=== PATIENT | female | born 1995 ===

== ENCOUNTER 2017-02-25 01:20 | Observation (INO) | payer OTHER ==
[2017-02-25 01:48] VITALS: RESP 16
--- NOTE | 2017-02-25 01:51 | ED PDOC ---
Arrival/HPI <Bry Rnig - Last Filed: 02/25/17 04:07> - History of Present Illness Time/Duration: > month Symptom Onset: Gradual Symptom Course: Worsening Activities at Onset: Other <Heather Silverio - Last Filed: 02/25/17 04:19> - General Time Seen by Provider: 02/25/17 01:23 - History of Present Illness Narrative History of Present Illness (Text): 02/25/17 01:44 21 year old female with no significant past medical history presents for suprapubic abd pain that has been ongoing for 2 months recently worsening. patient states that she had copper IUD device placed 5 years ago in [place]. Patient thinks the pain is due to the IUD device. Denies having any F/C, N/V/D/ C, vaginal discharge and vaginal bleeding. Patient does c/o dysparaunia and occasional dysuria. Patient had 1 in the past which was likely ectopic. required D&C at 3 months. Patient is currently sexually active, denies having any hx of STDs. LMP 8/02/25/17 02:22 (Heather Silverio) Past Medical History - Provider Review Nursing Documentation Reviewed: Yes - Travel History Have you recently traveled outside [place] w/in the past 3 mons?: No - Infectious Disease Hx of Infectious Diseases: None - Reproductive Menopause: No - Psychiatric Hx Substance Use: No <Heather Silverio - Last Filed: 02/25/17 04:19> Family/Social History - Physician Review Nursing Documentation Reviewed: Yes Family/Social History: Unknown Family HX Smoking Status: Never Smoked Hx Alcohol Use: Yes Frequency of alcohol use: Socially Hx Substance Use: No <Heather Silverio - Last Filed: 02/25/17 04:19> Allergies/Home Meds <Bry Ring - Last Filed: 02/25/17 04:07> <Heather Silverio - Last Filed: 02/25/17 04:19> Allergies/Adverse Reactions: Allergies No Known Allergies Allergy (Verified 02/25/17 02:07) Home Medications: Home Meds Medication Instructions Recorded Confirmed No Known Home Med 02/25/17 02/25/17 Review of Systems - Review of Systems Constitutional: Normal. absent: Fatigue, Fevers Eyes: Normal. absent: Vision Changes, Photophobia ENT: Normal. absent: Sore Throat, Rhinorrhea, Sinus Congestion Respiratory: Normal. absent: SOB, Cough, Sputum, Wheezing Cardiovascular: Normal. absent: Chest Pain, Palpitations, Edema, Calf Pain Gastrointestinal: Abdominal Pain. absent: Constipation, Diarrhea, Nausea, Vomiting Genitourinary Female: Dysuria, Other (dysparaunia ). absent: Frequency, Hematuria, Vaginal Bleeding, Vaginal Discharge Musculoskeletal: Normal. absent: Arthralgias, Back Pain, Neck Pain Skin: Normal. absent: Rash, Pruritis, Skin Lesions, Laceration Neurological: Normal. absent: Headache, Dizziness Endocrine: Normal. absent: Diaphoresis, Polyuria Hemo/Lymphatic: Normal. absent: Adenopathy, Easy Bleeding <Heather Silverio - Last Filed: 02/25/17 04:19> Physical Exam Temperature: Afebrile Blood Pressure: Normal Pulse: Regular Respiratory Rate: Normal Appearance: Positive for: Well-Appearing, Non-Toxic, Comfortable Pain Distress: Mild Mental Status: Positive for: Alert and Oriented X 3 - Systems Exam Head: Present: Atraumatic, Normocephalic Extroacular Muscles: Present: EOMI Mouth: Present: Moist Mucous Membranes Respiratory/Chest: Present: Clear to Auscultation, Good Air Exchange. No: Respiratory Distress, Accessory Muscle Use, Wheezes, Rales, Rhonchi Cardiovascular: Present: Regular Rate and Rhythm, Normal S1, S2. No: Murmurs Abdomen: Present: Tenderness (suprapubic ), Normal Bowel Sounds. No: Distention , Peritoneal Signs, Rebound, Guarding Genitourinary/Pelvic Exam: Present: Normal External Genitalia, Vaginal Discharge , Cervical Motion Tendernes. No: Vaginal Bleeding, Vaginal Lesions, Odor Lower Extremity: Present: Normal Inspection, NORMAL PULSES. No: Edema, CALF TENDERNESS Neurological: Present: GCS=15 Skin: Present: Warm, Dry, Normal Color. No: Rashes Psychiatric: Present: Alert, Oriented x 3, Normal Insight, Normal Concentration <Heather Silverio - Last Filed: 02/25/17 04:19> Vital Signs Temp Pulse Resp BP Pulse Ox 02/25/17 01:20 98.1 F 82 16 110/54 L 100 Medical Decision Making <Bry Ring - Last Filed: 02/25/17 04:07> <Heather Silverio - Last Filed: 02/25/17 04:19> ED Course and Treatment: Impression: Pt seen and evaluated with chief medical director. Pt, with no significant past medial history, presented for suprapubic pain for 2 months. Also complaining of dyspareunia and occasional dysuria. Aware and agree with HPI, clinical findings , plan, and management. Plan: -- Reassess and disposition 02/25/17 03:[address] Larkin, who is aware and agrees with plan. Accepts pt in to hospitalist service. Pt will go to [facility] observation for PID and retained IUD. vice president & general manager [employer] [place] notified. (Bry Ring) 02/25/17 01:52 21 y/o F presents for suprapubic abd pain ongoing for about 2 months recently worsening. 02/25/17 02:15 Dr. Lockwood, the OBGYN international organizer was called. Recommended that since patient has symptoms of PID, it is necessary to pull IUD out and treat outpatient for PID. 02/25/17 02:23 02/25/17 02:24 will check CBC, CMP, UA, urine culture and urine HCG 02/25/17 02:36 Repeat pelvic exam done. Unable to pull out IUD because unable to visualize the string for the device. 02/25/17 03:55 Dr. Ring spoke with Dr. Larkin who accepts pt under hospitalists service for observation. Will start pt on cefoxitin and doxycycline. Resident notified (Heather Silverio) - Lab Interpretations Lab Results: 02/25/17 02:55 02/25/17 02:55 Lab Results 02/25/17 02:55: Sodium 138, Potassium 3.7, Chloride 101, Carbon Dioxide 26, Anion Gap 15, BUN 12, Creatinine 0.5, Est GFR ( Amer) > 60, Est GFR (Non- Af Amer) > 60, Random Glucose 101, Calcium 9.0, Total Bilirubin 0.2, AST 21, ALT 23, Alkaline Phosphatase 52, Total Protein 7.4, Albumin 4.2, Globulin 3.2, Albumin/Globulin Ratio 1.3 02/25/17 02:55: WBC 7.5, RBC 3.96, Hgb 11.6 L, Hct 34.7 L, MCV 87.6, MCH 29.3, MCHC 33.4, RDW 13.5, Plt Count 253, MPV 9.5 02/25/17 02:55: Urine Color Yellow, Urine Appearance Clear, Urine pH 5.5, Ur Specific [place] 1.010, Urine Protein Negative, Urine Glucose (UA) Negative, Urine Ketones Negative, Urine Blood Trace-lysed H, Urine Nitrate Negative, Urine Bilirubin Negative, Urine Urobilinogen 0.2, Ur Leukocyte Esterase Small H , Urine RBC 0 - 2, Urine WBC 0 - 2, Ur Epithelial Cells 1 - 3, Urine HCG, Qual Negative - Medication Orders Current Medication Orders: Cefoxitin Sodium 2 gm/ Sodium (Chloride) 100 mls @ 100 mls/hr IV ONCE ONE PRN Reason: Protocol Stop: 02/25/17 04:50 Doxycycline Hyclate 100 mg/ (Sodium Chloride) 100 mls @ 100 mls/hr IVPB Q12 [facility] PRN Reason: Protocol Discontinued Medications Acetaminophen (Tylenol 325mg Tab) 650 mg PO STAT STA Stop: 02/25/17 02:41 Last Admin: 02/25/17 03:02 Dose: 650 mg Azithromycin (Zithromax 500mg In Ns) 500 mg in 250 mls @ 167 mls/hr IVPB STAT STA PRN Reason: Protocol Stop: 02/25/17 04:07 Last Admin: 02/25/17 03:02 Dose: 167 mls/hr - PA / SENSOR SPECIALIST / Resident Statement BARBARA has reviewed & agrees with the documentation as recorded. BARBARA has examined the patient and agrees with the treatment plan. <Bry Ring - Last Filed: 02/25/17 04:07> Disposition/Present on Arrival <Bry Ring - Last Filed: 02/25/17 04:07> - Present on Arrival Any Indicators Present on Arrival: No History of DVT/PE: No History of Uncontrolled Diabetes: No Urinary Catheter: No History of Decub. Ulcer: No History Surgical Site Infection Following: None - Disposition Have Diagnosis and Disposition been Completed?: Yes Disposition Time: 04:04 Patient Plan: Observation <Heather Silverio - Last Filed: 02/25/17 04:19> - Disposition Diagnosis: PID (acute pelvic inflammatory disease), IUD threads lost Disposition: HOSPITALIZED Patient Problems: Current Active Problems Problem Status Onset IUD threads lost Acute PID (acute pelvic inflammatory disease) Acute Condition: STABLE
[2017-02-25] MEDS ORDERED: cefTRIAXone (Rocephin) 1 gm Inj IM STA (02:22)
[2017-02-25] MEDS ORDERED: Azithromycin 500MG/NS 250ml 500 MG/250 ML BAG IVPB STA (02:38)
[2017-02-25 03:12] LABS: HEMOGLOBIN 11.6 g/dL (12.0-16.0); MEAN CELL VOLUME 87.6 fl (80.0-105.0); MEAN CORPUSCULAR HEMOGLOBIN 29.3 pg (25.0-35.0); MEAN CORPUSCULAR HGB CONC 33.4 g/dl (31.0-37.0); MEAN PLATELET VOLUME 9.5 fl (7.0-11.0); PH,URINE 5.5 (4.7-8.0); RBC 3.96 10^6/uL (3.5-6.1); RED CELL DISTRIBUTION WIDTH 13.5 % (11.5-14.5); URINE BILIRUBIN NEGATIVE (NEGATIVE); URINE BLOOD TRACE-LYSED (NEGATIVE); URINE GLUCOSE (UA) NEGATIVE (NEGATIVE); URINE LEUKOCYTE ESTERASE SMALL Leu/uL (NEGATIVE); URINE NITRATE NEGATIVE (NEGATIVE); URINE PROTEIN NEGATIVE mg/dL (<30 mg/dL); URINE UROBILINOGEN 0.2 E.U./dL (<1 E.U./dL); WHITE BLOOD COUNT 7.5 10^3/ul (4.5-11.0)
[2017-02-25 03:18] LABS: ALB/GLOB RATIO 1.3 (1.1-1.8); ALBUMIN 4.2 g/dL (3.0-4.8); ALT/SGPT 23 U/L (7-56); AST/SGOT 21 U/L (15-39); BLOOD UREA NITROGEN 12 mg/dL (7-21); GFR AFRICAN-AMERICAN > 60; GFR NON-AFRICAN AMERICAN > 60
[2017-02-25 03:32] LABS: HCG,QUALITATIVE URINE NEGATIVE (NEGATIVE); URINE APPEARANCE CLEAR (CLEAR); URINE COLOR YELLOW (YELLOW)
[2017-02-25 03:35] LABS: URINE RBC 0 - 2 /hpf (0-2); URINE WBC 0 - 2 /hpf (0-6)
[2017-02-25] MEDS ORDERED: cefOXitin 2 GM in Sodium Chloride 0.9% 100 ML IV ONE (03:51)
[2017-02-25 05:32] VITALS: O2SAT 99
--- NOTE | 2017-02-25 05:43 | CP.PCM.HP ---
Addendum entered and electronically signed by Rolanda Barrientos DO 02/25/17 12:57: Plan f/u ELECTRO MECHANICAL SOLAR TECHNICIAN Recommendations: Per Dr. Gerardo, patient can be discharged on Doxycycline 100 mg POBID x 14 days. Patient encouraged to follow up for further evaluation and other control options per Dr. Gerardo (SWITCH TECHNICIAN) Original Note: History of Present Illness - History of Present Illness History of Present Illness: 21 year old female with a past medical history of PID, epistaxis, seasonal allergies who complains of 2 months of worsening lower abdominal pain and dyspareunia. She states that she has also developed pain with intercourse, post- intercourse, and with deep penetration. She denies having any assciated nausea, fever, diarrhea, or localiztion of the abdominal pain. She also mentions pain during and after her periods, which are at regular 28 day intervals, heavy- requiring her to change her tampon 5-6 times daily. Due to the increasing severity of pain, and it not responding to the usual 800 mg of Motrin she takes , along with her concern about migration of her IUD, she came to the ED. She denies having any history of STI, any change in partners in the last 3 months, or dysuria currently. PMH: Seasonal allergies, recurrent epistaxis, lumbago OBGYN: Patient had 1 miscarriage in the 3rd month requiring Dilation and Curretage and subsequent Copper IUD placement. Social History: Works at a [email or web address] Snacks, drinks and smokes socially, denies illicit drug use, lives with mother and sister Medications: Zyrtec and Motrin 800 mg for pain Allergies: NKDA. Present on Admission - Present on Admission Any Indicators Present on Admission: No Review of Systems - Constitutional Constitutional: As Per HPI - EENT Eyes: As Per HPI Ears: As Per HPI Nose/Mouth/Throat: Epistaxis - Cardiovascular Cardiovascular: absent: Chest Pain, Chest Pain at Rest, Dyspnea - Respiratory Respiratory: absent: Cough, Hemoptysis, Dyspnea on Exertion - Gastrointestinal Gastrointestinal: Abdominal Pain. absent: Dyspepsia, Loose Stools, Vomiting - Genitourinary Genitourinary: Urinary Hesitance. absent: Flank Pain, Nocturia, Urinary Incontinence - Reproductive: Female Reproductive:Female: Heavy Menses - Musculoskeletal Musculoskeletal: As Per HPI - Integumentary Integumentary: As Per HPI - Neurological Neurological: Dizziness. absent: Abnormal Gait, Headaches, Loss of Vision - Hematologic/Lymphatic Hematologic: As Per HPI Past Patient History - Infectious Disease Hx of Infectious Diseases: None - Past Social History Smoking Status: Never Smoked - PSYCHIATRIC Hx Substance Use: No Meds Allergies/Adverse Reactions: Allergies Allergy/AdvReac Type Severity Reaction Status Date / Time No Known Allergies Allergy Verified 02/25/17 02:07 Physical Exam - Constitutional Appears: No Acute Distress - Head Exam Head Exam: ATRAUMATIC, NORMOCEPHALIC - Eye Exam Eye Exam: EOMI, Normal appearance, PERRL - ENT Exam ENT Exam: Mucous Membranes Moist, Normal Oropharynx - Neck Exam Neck exam: Positive for: Normal Inspection. Negative for: Tenderness - Respiratory Exam Respiratory Exam: Clear to Auscultation Bilateral, NORMAL BREATHING PATTERN. absent: Wheezes - Cardiovascular Exam Cardiovascular Exam: RRR, +S1, +S2 - GI/Abdominal Exam GI & Abdominal Exam: Normal Bowel Sounds. absent: Rebound Additional comments: tenderness to palpation in the lower quadrants and pelvic region. - Rectal Exam Rectal Exam: Deferred - Exam Bimanual exam: Cervical Motion Tendernes (per ED resident) - Extremities Exam Extremities exam: Positive for: normal capillary refill, normal inspection, pedal pulses present - Back Exam Back exam: NORMAL INSPECTION. absent: CVA tenderness (L), CVA tenderness (R) - Neurological Exam Neurological exam: Alert, CN II-XII Intact, Oriented x3 - Psychiatric Exam Psychiatric exam: Normal Affect, Normal Mood - Skin Skin Exam: Dry, Intact, Normal Color, Warm Results - Vital Signs Recent Vital Signs: Last Vital Signs Temp 98.1 F 02/25/17 01:20 Pulse 80 02/25/17 03:20 Resp 16 02/25/17 03:20 BP 112/57 L 02/25/17 03:20 Pulse Ox 99 02/25/17 03:20 - Labs Result Diagrams: 02/25/17 02:55 02/25/17 02:55 Assessment & Plan - Assessment and Plan (Free Text) Assessment: 21 yo female with PID who presents with 2 months of lower abdominal pain. In the ED pelvic exam was performed which revealed extreme cervical motion tenderness and failure to retrive the IUD. Given the patient would be a poor candidate for follow-up, she was admitted to the hospital for IV antibiotics and removal of the IUD. Plan: 1) PID with IUD with increasingly worse abdominal pain, cervical motion tenderness, with poor follow up potential Doxycycline and Cefoxitin OBGYN consult for IUD removal F/U with CBC to ensure no systemic infection Tylenol PRN for pain Zofran prn for nausea 2) Anemia most likely secondary to heavy menses - Date & Time Date: 02/25/17 Time: 05:25
[2017-02-25] MEDS ORDERED: Sodium Chloride 0.9% 1,000 ML IV SCH (09:30)
[2017-02-25] MEDS ORDERED: Morphine 2 mg/ml ISec IVP PRN (09:54)
--- NOTE | 2017-02-25 10:14 | CT ---
PROCEDURE: CT Abdomen and Pelvis without intravenous contrast HISTORY: abdominal pain COMPARISON: None. TECHNIQUE: Without contrast. Contrast Dose: Radiation dose: Total exam DLP = 401 mGy-cm. This CT exam was performed using one or more of the following dose reduction techniques: Automated exposure control, adjustment of the mA and/or kV according to patient size, and/or use of iterative reconstruction technique. FINDINGS: LOWER THORAX: Unremarkable. LIVER: Unremarkable. No gross lesion or ductal dilatation. GALLBLADDER AND BILE DUCTS: Unremarkable. PANCREAS: Unremarkable. No gross lesion or ductal dilatation. SPLEEN: Unremarkable. ADRENALS: Unremarkable. No mass. KIDNEYS AND URETERS: Unremarkable. No hydronephrosis. No solid mass. VASCULATURE: Unremarkable. No aortic aneurysm. BOWEL: Unremarkable. No obstruction. No gross mural thickening. APPENDIX: Unremarkable. Normal appendix. PERITONEUM: There is a small amount of fluid in the cul-de-sac LYMPH NODES: Unremarkable. No enlarged lymph nodes. BLADDER: Unremarkable. REPRODUCTIVE: An IUD is seen within the endometrial canal. BONES: No acute fracture. OTHER FINDINGS: None. IMPRESSION: No acute findings
[2017-02-25] MEDS ORDERED: cefOXitin 2 GM in Sodium Chloride 0.9% 100 ML IV SCH (10:30)
--- NOTE | 2017-02-25 12:47 | CP.PCM.CON ---
History of Present Illness - History of Present Illness History of Present Illness: Patient is a 21 nullparous female presents with lower abdominal pain, admitted for PID management. Patient is afebrile, reports that the lower abdominal pain has improved with tylenol, no N/V, no vaginal bleeding, no CP, no SOB. Discussed with admitting doctor recommendation would be to remove IUD if PID is diagnosis. ER PA was unable to remove IUD. Past Patient History - Infectious Disease Hx of Infectious Diseases: None - Past Social History Smoking Status: Never Smoked - CARDIAC Hx Cardiac Disorders: No - PULMONARY Hx Respiratory Disorders: No - NEUROLOGICAL Hx Neurological Disorder: No Hx Dizziness: Yes (occassional) - HEENT Hx HEENT Problems: No - RENAL Hx Chronic Kidney Disease: No - ENDOCRINE/METABOLIC Hx Endocrine Disorders: No - HEMATOLOGICAL/ONCOLOGICAL Hx Blood Disorders: No - INTEGUMENTARY Hx Dermatological Problems: No - MUSCULOSKELETAL/RHEUMATOLOGICAL Hx Musculoskeletal Disorders: No Hx Back Pain: Yes Hx Falls: No - GASTROINTESTINAL Hx Gastrointestinal Disorders: No - GENITOURINARY/GYNECOLOGICAL Hx Genitourinary Disorders: No - PSYCHIATRIC Hx Substance Use: No - SURGICAL HISTORY Other/Comment: has had D&C done Meds Allergies/Adverse Reactions: Allergies Allergy/AdvReac Type Severity Reaction Status Date / Time No Known Allergies Allergy Verified 02/25/17 02:07 - Medications Medications: Current Medications Acetaminophen (Tylenol 325mg Tab) 650 mg PO Q6H PRN PRN Reason: Pain, moderate (4-7) Famotidine (Pepcid) 20 mg IVP DAILY [facility] Last Admin: 02/25/17 10:35 Dose: 20 mg Doxycycline Hyclate 100 mg/ (Sodium Chloride) 100 mls @ 100 mls/hr IVPB Q12 [facility] PRN Reason: Protocol Last Admin: 02/25/17 10:53 Dose: 100 mls/hr Sodium Chloride (Sodium Chloride 0.9%) 1,000 mls @ 100 mls/hr IV .Q10H [facility] Last Admin: 02/25/17 10:35 Dose: 100 mls/hr Ceftriaxone Sodium (Rocephin 1 Gram Ivpb) 1 gm in 100 mls @ 100 mls/hr IVPB DAILY [facility] PRN Reason: Protocol Metronidazole (Flagyl) 500 mg in 100 mls @ 100 mls/hr IVPB Q8 [facility] PRN Reason: Protocol Morphine Sulfate (Morphine) 1 mg IVP Q4H PRN PRN Reason: Pain, moderate (4-7) Ondansetron HCl (Zofran Odt) 4 mg PO Q6H PRN PRN Reason: Nausea/Vomiting Ondansetron HCl (Zofran Inj) 4 mg IVP Q4H PRN PRN Reason: Nausea/Vomiting Physical Exam - Constitutional Appears: Well, Non-toxic - Eye Exam Eye Exam: Normal appearance - Respiratory Exam Respiratory Exam: Clear to Auscultation Bilateral, NORMAL BREATHING PATTERN - Cardiovascular Exam Cardiovascular Exam: REGULAR RHYTHM, +S1, +S2 - GI/Abdominal Exam GI & Abdominal Exam: Normal Bowel Sounds, Soft Additional comments: no gaurding, no rebound - Exam Speculum exam: NORMAL SPECULUM EXAM Additional comments: Speculum inserted, no masses, no abnormal discharge, +strings noted at os, ring forcep used to remove IUD in entirety. IUD shown to patient - Extremities Exam Extremities exam: Positive for: normal inspection Results - Vital Signs Recent Vital Signs: Last Vital Signs Temp 98.2 F 02/25/17 07:30 Pulse 64 02/25/17 07:30 Resp 16 02/25/17 07:30 BP 104/55 L 02/25/17 07:30 Pulse Ox 99 02/25/17 07:30 - Labs Result Diagrams: 02/25/17 02:55 02/25/17 02:55 Assessment & Plan - Assessment and Plan (Free Text) Plan: A/P 21 yo admitted for PID management 1. Patient evaluated and examined. Speculum inserted, no masses/no abnormal discharge. Strings noted at os, ring forcep used to remove IUD in entirety. CT scan shows no masses, no other findings. WBC = 7 and patient continues to be afebrile. Patient reports that abdominal pain is improved since last night. Asymptomatic on exam 2. Patient can be discharged home on outpatient therapy with Doxycycline 100mg PO BID x 14 days. 3. Patient encouraged to follow up in the clinic for further evaluation and other control options 4. Consult appreciated - Date & Time Date: 02/25/17 Time: 12:46
[2017-02-25] MEDS ORDERED: metroNIDAZOLE IV 500 mg/100 ml 500 MG/100 ML BAG IVPB SCH (14:00)
--- NOTE | 2017-02-25 14:00 | CP.PCM.DIS ---
<Eng,Rolanda - Last Filed: 02/25/17 14:14> Provider - Provider Date of Admission: 02/25/17 03:59 Attending physician: Chucky Perkins MD Consults: Dr. Gerardo - TAMI White - ID Time Spent in preparation of Discharge (in minutes): 20 Hospital Course - Lab Results Lab Results: Most Recent Lab Values WBC 7.5 10^3/ul (4.5-11.0) 02/25/17 02:55 RBC 3.96 10^6/uL (3.5-6.1) 02/25/17 02:55 Hgb 11.6 g/dL (12.0-16.0) L 02/25/17 02:55 Hct 34.7 % (36.0-48.0) L 02/25/17 02:55 MCV 87.6 fl (80.0-105.0) 02/25/17 02:55 MCH 29.3 pg (25.0-35.0) 02/25/17 02:55 MCHC 33.4 g/dl (31.0-37.0) 02/25/17 02:55 RDW 13.5 % (11.5-14.5) 02/25/17 02:55 Plt Count 253 10^3/uL (120.0-450.0) 02/25/17 02:55 MPV 9.5 fl (7.0-11.0) 02/25/17 02:55 ESR 9 mm/hr (0.0-20.0) 02/25/17 03:00 Sodium 138 mmol/L (132-148) 02/25/17 02:55 Potassium 3.7 mmol/L (3.6-5.0) 02/25/17 02:55 Chloride 101 mmol/L (95-110) 02/25/17 02:55 Carbon Dioxide 26 mmol/L (21-33) 02/25/17 02:55 Anion Gap 15 (10-20) 02/25/17 02:55 BUN 12 mg/dL (7-21) 02/25/17 02:55 Creatinine 0.5 mg/dL (0.5-1.4) 02/25/17 02:55 Est GFR ( Amer) > 60 02/25/17 02:55 Est GFR (Non-Af Amer) > 60 02/25/17 02:55 Random Glucose 101 mg/dL (70-110) 02/25/17 02:55 Calcium 9.0 mg/dL (8.4-10.5) 02/25/17 02:55 Total Bilirubin 0.2 mg/dL (0.2-1.3) 02/25/17 02:55 AST 21 U/L (15-39) 02/25/17 02:55 ALT 23 U/L (7-56) 02/25/17 02:55 Alkaline Phosphatase 52 U/L (38-133) 02/25/17 02:55 Total Protein 7.4 g/dL (5.8-8.3) 02/25/17 02:55 Albumin 4.2 g/dL (3.0-4.8) 02/25/17 02:55 Globulin 3.2 gm/dL 02/25/17 02:55 Albumin/Globulin Ratio 1.3 (1.1-1.8) 02/25/17 02:55 Urine Color Yellow (YELLOW) 02/25/17 02:55 Urine Appearance Clear (CLEAR) 02/25/17 02:55 Urine pH 5.5 (4.7-8.0) 02/25/17 02:55 Ur Specific Gautier 1.010 (1.005-1.035) 02/25/17 02:55 Urine Protein Negative mg/dL (<30 mg/dL) 02/25/17 02:55 Urine Glucose (UA) Negative mg/dL (NEGATIVE) 02/25/17 02:55 Urine Ketones Negative mg/dL (NEGATIVE) 02/25/17 02:55 Urine Blood Trace-lysed (NEGATIVE) H 02/25/17 02:55 Urine Nitrate Negative (NEGATIVE) 02/25/17 02:55 Urine Bilirubin Negative (NEGATIVE) 02/25/17 02:55 Urine Urobilinogen 0.2 E.U./dL (<1 E.U./dL) 02/25/17 02:55 Ur Leukocyte Esterase Small Bianca/uL (NEGATIVE) H 02/25/17 02:55 Urine RBC 0 - 2 /hpf (0-2) 02/25/17 02:55 Urine WBC 0 - 2 /hpf (0-6) 02/25/17 02:55 Ur Epithelial Cells 1 - 3 /hpf (0-5) 02/25/17 02:55 Urine HCG, Qual Negative (NEGATIVE) 02/25/17 02:55 - Hospital Course Hospital Course: Discharge Summary for Dr. Perkins 21 F presented with 2 months of worsening lower abdominal pain and dyspareunia. Patients states that she has also developed pain with intercourse, post- intercourse. She denies having any assciated nausea, fever, diarrhea, or localization of the abdominal pain. Patient's pain is not relieved by the 800 mg of Motrin she takes, along with her concern about migration of her IUD, she came to the ED. She denies having any history of STI, any change in partners in the last 3 months, or dysuria currently. Patient was taken to have an CT ABdomen /Pelvis without PO contrast. IUD visualized. No other acute finding found. Dr. Gerardo saw the patient and removed the IUD after discussing options with the patient. Patient tolerated the procedure well. Patient was given azythromycin 400 mg, ceftriaxone 1 gm, cefoxitin 2 gm prescribed during her stay. Per OBGYN and ID recommendations, patient sent home on Flagyl and Doxycycline Rolanda Barrientos DO PGY1 - Date & Time of H&P Date of H&P: 02/25/17 Time of H&P: 14:11 Discharge Exam - Head Exam Head Exam: ATRAUMATIC, NORMOCEPHALIC - Eye Exam Eye Exam: EOMI, Normal appearance - ENT Exam ENT Exam: Mucous Membranes Moist - Neck Exam Neck exam: Full Rom, Normal Inspection - Respiratory Exam Respiratory Exam: absent: Accessory Muscle Use, Respiratory Distress - Cardiovascular Exam Cardiovascular Exam: REGULAR RHYTHM. absent: Bradycardia, Tachycardia - GI/Abdominal Exam GI & Abdominal Exam: Normal Bowel Sounds, Soft, Tenderness. absent: Bruit Additional comments: most of pain on right lower quadrant and middle are of lower abdomen. No rebound. pain on palpation. negative rovsing - Extremities Exam Extremities exam: full ROM Additional comments: no pedal edema no leg swelling - Neurological Exam Neurological exam: Alert, Normal Gait, Oriented x3 - Psychiatric Exam Psychiatric exam: Normal Affect, Normal Mood - Skin Skin Exam: Dry, Intact, Normal Color, Warm Discharge Plan - Discharge Medications Prescriptions: Doxycycline Hyclate 100 mg PO BID #28 cap metroNIDAZOLE [Flagyl] 500 mg PO TID #42 tab - Follow Up Plan Condition: FAIR Disposition: HOME/ ROUTINE Patient education suggested?: Yes Instructions: Doxycycline (By mouth), Metronidazole (By mouth), Spontaneous Miscarriage (DC), Pelvic Inflammatory Disease (DC), Safe Sex (DC) Additional Instructions: 1. follow up with with your primary care doctor for further evaluation 2. follow up with INSURANCE ADMINISTRATIVE ASSISTANT for outpatient follow up in one week for further evaluation and placement of new contraceptives 3. return to ED if symptoms worsen (increased abdominal pain, nausea, vomiting, seizures, increased bleeding). <Chucky Perkins - Last Filed: 02/25/17 16:57> Provider - Provider Date of Admission: 02/25/17 03:59 Attending physician: Chucky Perkins MD Hospital Course - Lab Results Lab Results: Most Recent Lab Values WBC 7.5 10^3/ul (4.5-11.0) 02/25/17 02:55 RBC 3.96 10^6/uL (3.5-6.1) 02/25/17 02:55 Hgb 11.6 g/dL (12.0-16.0) L 02/25/17 02:55 Hct 34.7 % (36.0-48.0) L 02/25/17 02:55 MCV 87.6 fl (80.0-105.0) 02/25/17 02:55 MCH 29.3 pg (25.0-35.0) 02/25/17 02:55 MCHC 33.4 g/dl (31.0-37.0) 02/25/17 02:55 RDW 13.5 % (11.5-14.5) 02/25/17 02:55 Plt Count 253 10^3/uL (120.0-450.0) 02/25/17 02:55 MPV 9.5 fl (7.0-11.0) 02/25/17 02:55 ESR 9 mm/hr (0.0-20.0) 02/25/17 03:00 Sodium 138 mmol/L (132-148) 02/25/17 02:55 Potassium 3.7 mmol/L (3.6-5.0) 02/25/17 02:55 Chloride 101 mmol/L (95-110) 02/25/17 02:55 Carbon Dioxide 26 mmol/L (21-33) 02/25/17 02:55 Anion Gap 15 (10-20) 02/25/17 02:55 BUN 12 mg/dL (7-21) 02/25/17 02:55 Creatinine 0.5 mg/dL (0.5-1.4) 02/25/17 02:55 Est GFR ( Amer) > 60 02/25/17 02:55 Est GFR (Non-Af Amer) > 60 02/25/17 02:55 Random Glucose 101 mg/dL (70-110) 02/25/17 02:55 Calcium 9.0 mg/dL (8.4-10.5) 02/25/17 02:55 Total Bilirubin 0.2 mg/dL (0.2-1.3) 02/25/17 02:55 AST 21 U/L (15-39) 02/25/17 02:55 ALT 23 U/L (7-56) 02/25/17 02:55 Alkaline Phosphatase 52 U/L (38-133) 02/25/17 02:55 Total Protein 7.4 g/dL (5.8-8.3) 02/25/17 02:55 Albumin 4.2 g/dL (3.0-4.8) 02/25/17 02:55 Globulin 3.2 gm/dL 02/25/17 02:55 Albumin/Globulin Ratio 1.3 (1.1-1.8) 02/25/17 02:55 Urine Color Yellow (YELLOW) 02/25/17 02:55 Urine Appearance Clear (CLEAR) 02/25/17 02:55 Urine pH 5.5 (4.7-8.0) 02/25/17 02:55 Ur Specific Gautier 1.010 (1.005-1.035) 02/25/17 02:55 Urine Protein Negative mg/dL (<30 mg/dL) 02/25/17 02:55 Urine Glucose (UA) Negative mg/dL (NEGATIVE) 02/25/17 02:55 Urine Ketones Negative mg/dL (NEGATIVE) 02/25/17 02:55 Urine Blood Trace-lysed (NEGATIVE) H 02/25/17 02:55 Urine Nitrate Negative (NEGATIVE) 02/25/17 02:55 Urine Bilirubin Negative (NEGATIVE) 02/25/17 02:55 Urine Urobilinogen 0.2 E.U./dL (<1 E.U./dL) 02/25/17 02:55 Ur Leukocyte Esterase Small Bianca/uL (NEGATIVE) H 02/25/17 02:55 Urine RBC 0 - 2 /hpf (0-2) 02/25/17 02:55 Urine WBC 0 - 2 /hpf (0-6) 02/25/17 02:55 Ur Epithelial Cells 1 - 3 /hpf (0-5) 02/25/17 02:55 Urine HCG, Qual Negative (NEGATIVE) 02/25/17 02:55 Attending/Attestation - Attestation I have personally seen and examined this patient.: Yes I have fully participated in the care of the patient.: Yes I have reviewed all pertinent clinical information, including history, physical exam and plan: Yes Notes (Text): 02/25/17 16:55 attending note; Patient seen and examined with resident. Patient is a 21-year-old female admitted with pelvic pain. Patient has IUD. Patient also complained of vaginal discharge. Patient was found to have cervical motion tenderness during pelvic examination in the ER. patient was evaluated by PROFESSOR OF [employer]. IUD removed. Patient will be discharged home with doxycycline and Flagyl. Advised about other contraception methods. Needs to follow up with PROFESSOR OF VIOLIN DR. Gerardo as outpatient. Diagnosis; PID Removal of IUD 02/25/17 16:56
--- NOTE | 2017-02-25 15:32 | CP.PCM.CON ---
History of Present Illness - History of Present Illness History of Present Illness: 21 year old female with PMH of pelvic inflammatory disease, history of miscarriage S/P D and C, S/P placement of copper IUD came in to [facility] complaining of lower abdominal pain and dyspareunia which started about 2 weeks ago and worsened in the past couple of days. She denies vaginal discharge, no dysuria. She has noticed heavier menstrual periods. She denies fever or chills, no nausea or vomiting, no chest pain, no cough or colds, no SOB , no headache or dizziness. Infectious Diseases consult is requested to further evaluate and manage. Review of Systems - Review of Systems All systems: reviewed and no additional remarkable complaints except (as per HPI ) Past Patient History - Infectious Disease Hx of Infectious Diseases: None - Past Social History Smoking Status: Never Smoked - CARDIAC Hx Cardiac Disorders: No - PULMONARY Hx Respiratory Disorders: No - NEUROLOGICAL Hx Neurological Disorder: No Hx Dizziness: Yes (occassional) - HEENT Hx HEENT Problems: No - RENAL Hx Chronic Kidney Disease: No - ENDOCRINE/METABOLIC Hx Endocrine Disorders: No - HEMATOLOGICAL/ONCOLOGICAL Hx Blood Disorders: No - INTEGUMENTARY Hx Dermatological Problems: No - MUSCULOSKELETAL/RHEUMATOLOGICAL Hx Musculoskeletal Disorders: No Hx Back Pain: Yes Hx Falls: No - GASTROINTESTINAL Hx Gastrointestinal Disorders: No - GENITOURINARY/GYNECOLOGICAL Hx Genitourinary Disorders: No - PSYCHIATRIC Hx Substance Use: No - SURGICAL HISTORY Other/Comment: has had D&C done Meds Home Medications: Home Medication List Medication Instructions Recorded Confirmed Type Doxycycline Hyclate 100 mg PO BID #28 cap 02/25/17 Rx metroNIDAZOLE [Flagyl] 500 mg PO TID #42 tab 02/25/17 Rx Allergies/Adverse Reactions: Allergies Allergy/AdvReac Type Severity Reaction Status Date / Time No Known Allergies Allergy Verified 02/25/17 02:07 - Medications Medications: Current Medications Acetaminophen (Tylenol 325mg Tab) 650 mg PO Q6H PRN PRN Reason: Pain, moderate (4-7) Famotidine (Pepcid) 20 mg IVP DAILY [facility] Doxycycline Hyclate 100 mg/ (Sodium Chloride) 100 mls @ 100 mls/hr IVPB Q12 PILAR PRN Reason: Protocol Cefoxitin Sodium 2 gm/ Sodium (Chloride) 100 mls @ 100 mls/hr IV Q6H PILAR PRN Reason: Protocol Stop: 02/28/17 10:31 Sodium Chloride (Sodium Chloride 0.9%) 1,000 mls @ 100 mls/hr IV .Q10H PILAR Morphine Sulfate (Morphine) 1 mg IVP Q4H PRN PRN Reason: Pain, moderate (4-7) Ondansetron HCl (Zofran Odt) 4 mg PO Q6H PRN PRN Reason: Nausea/Vomiting Ondansetron HCl (Zofran Inj) 4 mg IVP Q4H PRN PRN Reason: Nausea/Vomiting Physical Exam - Constitutional Appears: Non-toxic, No Acute Distress - Head Exam Head Exam: NORMAL INSPECTION - ENT Exam ENT Exam: Mucous Membranes Moist - Neck Exam Neck exam: Negative for: Lymphadenopathy, Meningismus - Respiratory Exam Respiratory Exam: Decreased Breath Sounds - Cardiovascular Exam Cardiovascular Exam: +S1, +S2 - GI/Abdominal Exam GI & Abdominal Exam: Soft. absent: Tenderness Results - Vital Signs Recent Vital Signs: Last Vital Signs Temp 98.2 F 02/25/17 07:30 Pulse 64 02/25/17 07:30 Resp 16 02/25/17 07:30 BP 104/55 L 02/25/17 07:30 Pulse Ox 99 02/25/17 07:30 - Labs Result Diagrams: 02/25/17 02:55 02/25/17 02:55 Assessment & Plan - Assessment and Plan (Free Text) Plan: Assessment probable pelvic inflammatory disease in a patient with a copper IUD - S/P removal by Gynecology history of pelvic inflammatory disease history of miscarriage S/P D and C Plan Started patient on Rocephin, Doxycycline and Flagyl - can be switched to PO Doxycycline and Flagyl on discharge follow up HIV tests, RPR, urine GC - can be followed as outpatient
[2017-02-25 16:46] VITALS: BP 101/56; PULSE 88; TEMP 98.4
[2017-02-26] MEDS ORDERED: cefTRIAXone 1 gm 1 GM/100 ML BAG IVPB SCH (10:00)
== END 2017-02-25 18:53 | disposition home or self-care (01) ==
LOC: ED 01:20 → ERH 03:59 → 5RNO 06:17
PROVIDERS: ADMIT Internal Medicine; ATTEND Internal Medicine
DX: N73.0 Acute parametritis and pelvic cellulitis (principal); N94.10 Unspecified dyspareunia; R30.0 Dysuria; Z30.432 Encounter for removal of intrauterine contraceptive device; R40.2412 Glasgow coma scale score 13-15, at arrival to emergency department; R04.0 Epistaxis; D64.9 Anemia, unspecified; R42 Dizziness and giddiness; M54.9 Dorsalgia, unspecified
CPT/HCPCS: 74176; 80053; 81001; 84703; 85027; 85651; 86140; 86592; 87086; 87491; 87591; 96365; 96367; 96375; 99285; G0378; J0456; J0694; J7040

== ENCOUNTER 2017-02-28 20:46 | Emergency (ER) | payer OTHER ==
[2017-02-28] MEDS ORDERED: Sodium Chloride 0.9% 1,000 ML IV STA (23:03)
[2017-02-28 23:43] LABS: BASO # 0.04 K/mm3 (0.0-2.0); BASO % 0.6 % (0.0-3.0); EOS # 0.3 (0.0-0.7); EOS % 4.1 % (1.5-5.0); GRAN # 4.26 (1.4-6.5); GRAN % 59.8 % (50.0-68.0); HEMOGLOBIN 13.7 g/dL (12.0-16.0); LYMPH # 2.1 (1.2-3.4); LYMPH % 29.9 % (22.0-35.0); MEAN CELL VOLUME 87.8 fl (80.0-105.0); MEAN CORPUSCULAR HEMOGLOBIN 29.3 pg (25.0-35.0); MEAN CORPUSCULAR HGB CONC 33.4 g/dl (31.0-37.0); MEAN PLATELET VOLUME 9.9 fl (7.0-11.0); MONO # 0.4 (0.1-0.6); MONO % 5.6 % (1.0-6.0); PLATELET COUNT 264 10^3/uL (120.0-450.0); RBC 4.67 10^6/uL (3.5-6.1); RED CELL DISTRIBUTION WIDTH 13.5 % (11.5-14.5); WHITE BLOOD COUNT 7.1 10^3/ul (4.5-11.0)
[2017-02-28 23:50] LABS: ALB/GLOB RATIO 1.3 (1.1-1.8); ALBUMIN 4.8 g/dL (3.0-4.8); ALT/SGPT 34 U/L (7-56); AST/SGOT 49 U/L (15-39); BLOOD UREA NITROGEN 9 mg/dL (7-21); CALCIUM 9.2 mg/dL (8.4-10.5); GFR AFRICAN-AMERICAN > 60; GFR NON-AFRICAN AMERICAN > 60
--- NOTE | 2017-03-01 01:26 | ED PDOC ---
Arrival/HPI - General Chief Complaint: GI Problem Time Seen by Provider: 02/28/17 21:48 Historian: Patient - History of Present Illness Narrative History of Present Illness (Text): 02/28/17 23:00 21 year old female, recently diagnosed with PID, presented to the ED complaining of nausea and vomiting. Patient states she is now taking Flagyl and Doxycycline for PID and believed may be due to medication. Patient states she feels sick only when she takes the medications. pt states after about 30 minutes she vomits the medication and then feels fine. Patient denies any fever , chills, urinary symptoms, or any other complaints. Patient states she is feeling better since her recent admission to the hospital. Patient reports some abdominal discomfort but notes it has greatly improved. Symptom Onset: Gradual Symptom Course: Unchanged Activities at Onset: Light Context: Home Past Medical History - Provider Review Nursing Documentation Reviewed: Yes - Travel History Have you recently traveled outside [place] w/in the past 3 mons?: No - Infectious Disease Hx of Infectious Diseases: None - Cardiac Hx Cardiac Disorders: No - Pulmonary Hx Respiratory Disorders: No - Neurological Hx Neurological Disorder: No Hx Dizziness: Yes (occassional) - HEENT Hx HEENT Disorder: No - Renal Hx Renal Disorder: No - Endocrine/Metabolic Hx Endocrine Disorders: No - Hematological/Oncological Hx Blood Disorders: No - Integumentary Hx Dermatological Disorder: No - Musculoskeletal/Rheumatological Hx Musculoskeletal Disorders: No Hx Back Pain: Yes Hx Falls: No - Gastrointestinal Hx Gastrointestinal Disorders: No - Genitourinary/Gynecological Hx Genitourinary Disorders: No - Psychiatric Hx Psychophysiologic Disorder: No Hx Substance Use: No - Surgical History Other/Comment: has had D&C done Family/Social History - Physician Review Nursing Documentation Reviewed: Yes Family/Social History: Unknown Family HX Smoking Status: Never Smoked Hx Alcohol Use: Yes (socially) Hx Substance Use: No Allergies/Home Meds Allergies/Adverse Reactions: Allergies No Known Allergies Allergy (Verified 02/25/17 02:07) Review of Systems - Physician Review All systems were reviewed & negative as marked: Yes - Review of Systems Constitutional: absent: Fatigue, Fevers Respiratory: Normal. absent: SOB, Cough Cardiovascular: Normal. absent: Chest Pain Gastrointestinal: Nausea, Vomiting Genitourinary Female: Normal. absent: Dysuria, Frequency, Hematuria, Urine Output Changes Musculoskeletal: Normal. absent: Back Pain, Neck Pain Skin: Normal. absent: Rash Neurological: Normal. absent: Headache, Dizziness Psychiatric: absent: Anxiety, Depression, Suicidal Ideation Physical Exam Vital Signs Reviewed: Yes Vital Signs Temp Pulse Resp BP Pulse Ox 03/01/17 01:43 72 16 99 03/01/17 01:15 98.3 F 72 16 102/47 L 100 02/28/17 22:34 71 18 127/60 100 02/28/17 21:26 98.2 F 68 18 115/73 99 Temperature: Afebrile Blood Pressure: Normal Pulse: Regular Respiratory Rate: Normal Appearance: Positive for: Well-Appearing, Non-Toxic, Comfortable Pain Distress: None Mental Status: Positive for: Alert and Oriented X 3 - Systems Exam Head: Present: Atraumatic, Normocephalic Mouth: Present: Moist Mucous Membranes Neck: Present: Normal Range of Motion Respiratory/Chest: Present: Clear to Auscultation, Good Air Exchange. No: Respiratory Distress, Accessory Muscle Use Cardiovascular: Present: Regular Rate and Rhythm, Normal S1, S2. No: Murmurs Abdomen: Present: Tenderness (Minimal lower abdominal tenderness), Normal Bowel Sounds. No: Distention, Peritoneal Signs, Rebound, Guarding Back: Present: Normal Inspection. No: CVA Tenderness, Midline Tenderness, Paraspinal Tenderness Upper Extremity: Present: Normal Inspection, Normal ROM Lower Extremity: Present: Normal ROM Neurological: Present: GCS=15, Speech Normal, Gait Normal Skin: Present: Warm, Dry, Normal Color. No: Rashes Psychiatric: Present: Alert, Oriented x 3 Medical Decision Making ED Course and Treatment: 02/28/17 23:00 Impression: 21 year old female c/o nausea and vomiting after taking antibiotics. Plan: -- CBC, CMP -- 1 L IV fluids -- Zofran -- Reassess and disposition Progress Notes: cbc; wnl cmp wnl pt non toxic well appearing; no distress. i have advised patient to take medications at separate times. Advised her to make sure that she is taking the medications with food. I will discharge the patient home with a prescription for Zofran. I discussed sex practices with the patient. I've advised the patient to follow-up with the teacher aide within the next 2 days. I've advised immediate return if she develops any worsening abdominal pain or if she develops high fever or the nausea and vomiting continues. Patient verbalizes understanding of discharge instructions and need for immediate followup. all aspects of this case were discussed the attending of record. Impression: Nausea and vomiting continue medications as prescribed. Take with food zofran every 8 hours as needed for nausea. follow up with the [facility] within the next 2 days Follow up with the primary care physician within the next 2 days return immediately if symptoms worsen,persist or if new symptoms develop. - Lab Interpretations Lab Results: 02/28/17 22:11 02/28/17 22:11 Lab Results 02/28/17 22:11: WBC 7.1, RBC 4.67, Hgb 13.7 D, Hct 41.0, MCV 87.8, MCH 29.3, MCHC 33.4, RDW 13.5, Plt Count 264, MPV 9.9, Gran % 59.8, Lymph % (Auto) 29.9, Lasalle % (Auto) 5.6, Eos % (Auto) 4.1, Baso % (Auto) 0.6, Gran # 4.26, Lymph # 2.1 , Lasalle # 0.4, Eos # 0.3, Baso # 0.04 02/28/17 22:11: Sodium 139, Potassium 4.5, Chloride 101, Carbon Dioxide 25, Anion Gap 18, BUN 9, Creatinine 0.5, Est GFR ( Amer) > 60, Est GFR (Non- Af Amer) > 60, Random Glucose 95, Calcium 9.2, Total Bilirubin 0.6, AST 49 H, ALT 34, Alkaline Phosphatase 56, Total Protein 8.5 H, Albumin 4.8, Globulin 3.7 , Albumin/Globulin Ratio 1.3 I have reviewed the lab results: Yes - Medication Orders Current Medication Orders: Discontinued Medications Sodium Chloride (Sodium Chloride 0.9%) 1,000 mls @ 999 mls/hr IV .Q1H1M STA Stop: 03/01/17 00:03 Last Admin: 02/28/17 23:34 Dose: 999 mls/hr Ondansetron HCl (Zofran Inj) 4 mg IVP STAT STA Stop: 02/28/17 23:04 Last Admin: 02/28/17 23:34 Dose: 4 mg - Scribe Statement The provider has reviewed the documentation as recorded by the Olga Lidia Hernández Provider Scribe Attestation: All medical record entries made by the Scribe were at my direction and personally dictated by me. I have reviewed the chart and agree that the record accurately reflects my personal performance of the history, physical exam, medical decision making, and the department course for this patient. I have also personally directed, reviewed, and agree with the discharge instructions and disposition. Disposition/Present on Arrival - Present on Arrival Any Indicators Present on Arrival: No History of DVT/PE: No History of Uncontrolled Diabetes: No Urinary Catheter: No History of Decub. Ulcer: No History Surgical Site Infection Following: None - Disposition Have Diagnosis and Disposition been Completed?: Yes Diagnosis: Nausea & vomiting Disposition: HOME/ ROUTINE Disposition Time: : Patient Plan: Discharge Condition: GOOD Additional Instructions: continue medications as prescribed. Take with food zofran every 8 hours as needed for nausea. follow up with the [facility] within the next 2 days Follow up with the primary care physician within the next 2 days return immediately if symptoms worsen,persist or if new symptoms develop. Prescriptions: Ondansetron [Zofran] 4 mg PO Q8H PRN #6 tab PRN Reason: Nausea/Vomiting Referrals: Juanjose Pacheco MD [Staff Provider] - Follow up with primary Cecilia Gerardo MD [Staff Provider] - Follow up with primary Raiza Joiner MD [Staff Provider] - Follow up with primary Forms: [facility] ([place]), WORK NOTE
[2017-03-01 01:27] VITALS: BP 102/47; PULSE 72; RESP 16; TEMP 98.3
[2017-03-01 01:44] VITALS: O2SAT 99
== END 2017-03-01 01:44 | disposition home or self-care (01) ==
LOC: ED 20:46
DX: R11.2 Nausea with vomiting, unspecified (principal)
CPT/HCPCS: 80053; 85025; 96374; 99284; J2405; J7040

== ENCOUNTER 2017-10-29 19:03 | Emergency (ER) | payer OTHER ==
[2017-10-29 19:56] VITALS: BP 132/67; PULSE 62; RESP 16; TEMP 99.1; O2SAT 100
[2017-10-29 21:54] LABS: URINE BILIRUBIN NEGATIVE (NEGATIVE); URINE BLOOD NEGATIVE (NEGATIVE); URINE GLUCOSE (UA) NEGATIVE (NEGATIVE); URINE LEUKOCYTE ESTERASE NEGATIVE Leu/uL (NEGATIVE); URINE PROTEIN NEGATIVE mg/dL (<30 mg/dL); URINE UROBILINOGEN 0.2 E.U./dL (<1 E.U./dL)
[2017-10-29 21:55] LABS: URINE APPEARANCE CLEAR (CLEAR); URINE COLOR YELLOW (YELLOW)
--- NOTE | 2017-10-29 22:55 | ED PDOC ---
Arrival/HPI <Bry Ring - Last Filed: 10/29/17 22:56> - General Historian: Patient <Stephania Taylor - Last Filed: 10/30/17 00:52> - General Chief Complaint: Back Pain Time Seen by Provider: 10/29/17 20:22 - History of Present Illness Narrative History of Present Illness (Text): 10/29/17 22:51 22-year-old female presents today with back pain 1 week. Patient with a history of back pain in the past. Patient states that she was told that she had a fracture in her back last year. Patient states a one-week ago she was lifting a heavy object and sustained a sharp stabbing pain in the mid lower lumbar spine. Patient states she had continued to work but the pain has been gradually increasing. Patient states over the weekend she just laid in bed. Patient states she is now severe pain worse with any movement of the back. Patient denies bladder or bowel incontinence. Patient denies numbness weakness or tingling in the extremities. Patient denies chest pain or shortness of breath. Patient states the pain is localized in the mid lower back. Patient denies radiation of pain to any part of the abdomen or back. Patient denies radiation of pain into the lower extremities. No other complaints. (Stephania Taylor) Past Medical History - Provider Review Nursing Documentation Reviewed: Yes - Travel History Have you recently traveled outside [place] w/in the past 3 mons?: No - Infectious Disease Hx of Infectious Diseases: None - Reproductive Menopause: No - Cardiac Hx Cardiac Disorders: No - Pulmonary Hx Respiratory Disorders: No - Neurological Hx Neurological Disorder: No Hx Dizziness: Yes (occassional) - HEENT Hx HEENT Disorder: No - Renal Hx Renal Disorder: No - Endocrine/Metabolic Hx Endocrine Disorders: No - Hematological/Oncological Hx Blood Disorders: No - Integumentary Hx Dermatological Disorder: No - Musculoskeletal/Rheumatological Hx Musculoskeletal Disorders: No Hx Back Pain: Yes Hx Falls: No - Gastrointestinal Hx Gastrointestinal Disorders: No - Genitourinary/Gynecological Hx Genitourinary Disorders: No - Psychiatric Hx Psychophysiologic Disorder: No Hx Substance Use: No - Surgical History Other/Comment: has had D&C done - Anesthesia Hx Anesthesia: No <Stephania Taylor - Last Filed: 10/30/17 00:52> Family/Social History - Physician Review Nursing Documentation Reviewed: Yes Family/Social History: Unknown Family HX Smoking Status: Never Smoked Hx Alcohol Use: Yes (socially) Hx Substance Use: No <Stephania Taylor - Last Filed: 10/30/17 00:52> Allergies/Home Meds <Bry Ring - Last Filed: 10/29/17 22:56> <Stephania Taylor - Last Filed: 10/30/17 00:52> Allergies/Adverse Reactions: Allergies No Known Allergies Allergy (Verified 02/25/17 02:07) Review of Systems - Review of Systems Constitutional: absent: Fatigue, Fevers Respiratory: absent: SOB, Cough Cardiovascular: absent: Chest Pain, Palpitations Gastrointestinal: absent: Abdominal Pain, Nausea, Vomiting Genitourinary Female: absent: Dysuria, Frequency, Hematuria, Vaginal Bleeding, Vaginal Discharge Musculoskeletal: Back Pain. absent: Arthralgias, Neck Pain Skin: absent: Rash, Pruritis Neurological: absent: Headache, Dizziness Psychiatric: absent: Anxiety, Depression, Suicidal Ideation <Stephania Taylor - Last Filed: 10/30/17 00:52> Physical Exam Vital Signs Reviewed: Yes Temperature: Afebrile Blood Pressure: Normal Pulse: Regular Respiratory Rate: Normal Appearance: Positive for: Well-Appearing, Non-Toxic, Comfortable Pain Distress: None Mental Status: Positive for: Alert and Oriented X 3 - Systems Exam Head: Present: Atraumatic Mouth: Present: Moist Mucous Membranes Neck: Present: Normal Range of Motion Respiratory/Chest: Present: Clear to Auscultation, Good Air Exchange. No: Respiratory Distress, Accessory Muscle Use Cardiovascular: Present: Regular Rate and Rhythm, Normal S1, S2. No: Murmurs Abdomen: No: Tenderness, Distention, Peritoneal Signs, Rebound, Guarding Back: Present: Normal Inspection, Midline Tenderness (Positive midline lower lumbar tenderness. No edema no erythema no ecchymosis). No: CVA Tenderness, Paraspinal Tenderness, Pain with Leg Raise Upper Extremity: Present: Normal ROM Lower Extremity: Present: Normal ROM Neurological: Present: GCS=15, Motor Func Grossly Intact, Normal Sensory Function Skin: Present: Warm, Dry, Normal Color. No: Rashes Psychiatric: Present: Alert, Oriented x 3 <Stephania Taylor - Last Filed: 10/30/17 00:52> Vital Signs Temp Pulse Resp BP Pulse Ox 10/29/17 19:53 99.1 F 62 16 132/67 100 Medical Decision Making <Bry Ring - Last Filed: 10/29/17 22:56> Reassessment Condition: Re-examined, Improved <Stephania Taylor - Last Filed: 10/30/17 00:52> ED Course and Treatment: 10/29/17 22:54 Patient nontoxic well-appearing in no distress with stable vital signs. Toradol, Flexeril CT lumbar spine; FINDINGS: Artifacts: Motion artifact limits this study. Vertebrae: Motion artifact significantly limits evaluation of the L1 spinous process. Otherwise, there is no definitive acute fracture within the lumbar spine. There is mild levoscoliosis of the lumbar spine. The measured Billings angle is 10. The lumbar vertebral bodies are normal in height , without abnormal subluxation. Other bones/joints: There is a limited evaluation of the lower ribs due to motion artifact. Discs/spinal canal/neural foramina: At L4-5, there is a central to left paracentral disc herniation with moderate narrowing of the thecal sac and narrowing of the left lateral recess. There is mild narrowing of the proximal left neural foramen. Mild disc bulging is visualized at L5-S1, without significant narrowing of the thecal sac. There is mild bulging into the right neural foramen , without significant neural foraminal narrowing. There is no significant narrowing of the thecal sac at the remaining lumbar levels. Soft tissues: No significant paraspinal swelling IMPRESSION: 1. Motion artifact significantly limits evaluation of the L1 spinous process. Otherwise, there is no definitive acute fracture within the lumbar spine. Clinical correlation is recommended. 2. At L4-5, there is a central to left paracentral disc herniation with moderate narrowing of the thecal sac and narrowing of the left lateral recess. There is mild narrowing of the proximal left neural foramen. This can be further evaluated with MRI. 3. There is mild levoscoliosis of the lumbar spine. 4. Additional findings described above. Patient reassessment: Feeling better with medications ambulating with a steady gait. Muscle strength 5 out of 5 bilaterally. I advised to followup with the orthopedist/back specialist within the next 2 days. Return if symptoms worsen persist or new symptoms develop Patient verbalizes understanding of discharge instructions and need for immediate followup. all aspects of this case were discussed the attending of record. Impression: Back pain, herniated disc Motrin every 6 hours as needed for pain Flexeril one tablet every 8 hours as needed for muscle spasms: May cause drowsiness percocet; 1 tablet every 6 hours as needed for moderate to severe pain: may cause drowsiness. Followup with the orthopedist/back specialist within the next 2 days Followup with primary care physician within the next 2 days Return if symptoms worsen persist or if new symptoms develop (Stephania Taylor) - Lab Interpretations Lab Results: Lab Results 10/29/17 21:39: Urine Color Yellow, Urine Appearance Clear, Urine pH 7.0, Ur Specific [place] 1.015, Urine Protein Negative, Urine Glucose (UA) Negative, Urine Ketones 15 H, Urine Blood Negative, Urine Nitrate Negative, Urine Bilirubin Negative, Urine Urobilinogen 0.2, Ur Leukocyte Esterase Negative - RAD Interpretation Radiology Orders: 10/29/17 21:42 LUMBAR SPINE W/O CONTRAST [CT] Stat - Medication Orders Current Medication Orders: Discontinued Medications Cyclobenzaprine HCl (Flexeril) 10 mg PO STAT STA Stop: 10/29/17 21:43 Last Admin: 10/29/17 22:01 Dose: 10 mg Ketorolac Tromethamine (Toradol) 60 mg IM STAT STA Stop: 10/29/17 21:43 Last Admin: 10/29/17 22:02 Dose: 60 mg MAR Pain Assessment Document 10/29/17 22:02 SS (Rec: 10/29/17 22:07 SS [facility] [id number] Pain Reassessment Is this a pain reassessment? No Sleep Is patient sleeping during reassessment? No Presence of Pain Presence of Pain Yes Pain Scale Used Pain Scale Used Numeric Location Upper or Lower Lower Pain Location Body Site Back Description Pain Behavior Moaning Crying Restlessness IM Administration Charges Document 10/29/17 22:02 SS (Rec: 10/29/17 22:07 SS [facility] [id number] Injection Site MAR Injection Site Left Deltoid Charges for Administration # of IM Administrations 1 - PA / INFORMATION TECH / Resident Statement / has reviewed & agrees with the documentation as recorded. / has examined the patient and agrees with the treatment plan. <Bry Ring - Last Filed: 10/29/17 22:56> Disposition/Present on Arrival <Bry Ring - Last Filed: 10/29/17 22:56> - Present on Arrival Any Indicators Present on Arrival: No History of DVT/PE: No History of Uncontrolled Diabetes: No Urinary Catheter: No History of Decub. Ulcer: No History Surgical Site Infection Following: None - Disposition Have Diagnosis and Disposition been Completed?: Yes Disposition Time: 00:39 Patient Plan: Discharge <Stephania Taylor - Last Filed: 10/30/17 00:52> - Disposition Diagnosis: Back pain, Herniated disc Disposition: HOME/ ROUTINE Patient Problems: Current Active Problems Problem Status Onset Back pain Acute Herniated disc Acute Condition: GOOD Discharge Instructions (ExitCare): Herniated Disc (DC) Additional Instructions: Motrin every 6 hours as needed for pain Flexeril one tablet every 8 hours as needed for muscle spasms: May cause drowsiness percocet; 1 tablet every 6 hours as needed for moderate to severe pain; may cause drowsiness. Followup with the orthopedist/back specialist within the next 2 days Followup with primary care physician within the next 2 days Return if symptoms worsen persist or if new symptoms develop Prescriptions: Cyclobenzaprine [Cyclobenzaprine HCl] 10 mg PO Q8 #10 tab Ibuprofen [Motrin] 600 mg PO Q6H PRN #20 tab PRN Reason: pain/fever reduction oxyCODONE/Acetaminophen [Percocet 5/325 mg Tab] 1 tab PO Q6H PRN #5 tab PRN Reason: moderate to severe pain Referrals: PCP,NO [Primary Care Provider] - Follow up with primary Troy Acosta MD [Staff Provider] - Follow up with primary Cody Calle DO [Staff Provider] - Follow up with primary César Lovett DO [Staff Provider] - Follow up with primary August Cole MD [Staff Provider] - Follow up with primary Forms: [employer] ([place]), WORK NOTE
--- NOTE | 2017-10-30 00:07 | CT ---
EXAM: CT Lumbar Spine Without Intravenous Contrast EXAM DATE/TIME: 10/29/2017 9:42 PM CLINICAL HISTORY: The patient age is 22 years old and is female; Injury or trauma; Injury Pulled a heavy box; Work related; Initial encounter; Sprain or strain, lumbar ligaments; Additional info: Severe midline lumbar spine pain Facility exam id and description: Ct lumbs lumbar spine w/o contrast TECHNIQUE: Axial computed tomography images of the lumbar spine without intravenous contrast. All CT scans at this facility use one or more dose reduction techniques, viz.: automated exposure control; ma/kV adjustment per patient size (including targeted exams where dose is matched to indication; i.e. head); or iterative reconstruction technique. Coronal and sagittal reformatted images were created and reviewed. COMPARISON: No relevant prior studies available. FINDINGS: Artifacts: Motion artifact limits this study. Vertebrae: Motion artifact significantly limits evaluation of the L1 spinous process. Otherwise, there is no definitive acute fracture within the lumbar spine. There is mild levoscoliosis of the lumbar spine. The measured Billings angle is 10?. The lumbar vertebral bodies are normal in height, without abnormal subluxation. Other bones/joints: There is a limited evaluation of the lower ribs due to motion artifact. Discs/spinal canal/neural foramina: At L4-5, there is a central to left paracentral disc herniation with moderate narrowing of the thecal sac and narrowing of the left lateral recess. There is mild narrowing of the proximal left neural foramen. Mild disc bulging is visualized at L5-S1, without significant narrowing of the thecal sac. There is mild bulging into the right neural foramen, without significant neural foraminal narrowing. There is no significant narrowing of the thecal sac at the remaining lumbar levels. Soft tissues: No significant paraspinal swelling IMPRESSION: 1. Motion artifact significantly limits evaluation of the L1 spinous process. Otherwise, there is no definitive acute fracture within the lumbar spine. Clinical correlation is recommended. 2. At L4-5, there is a central to left paracentral disc herniation with moderate narrowing of the thecal sac and narrowing of the left lateral recess. There is mild narrowing of the proximal left neural foramen. This can be further evaluated with MRI. 3. There is mild levoscoliosis of the lumbar spine. 4. Additional findings described above.
[2017-10-30] MEDS ORDERED: Oxycodone/Acetaminophen 5/325 mg Tab PO STA (01:02)
[2017-10-30] MEDS ORDERED: Oxycodone/Acetaminophen 5/325 mg Tab ONE (01:08)
== END 2017-10-30 01:12 | disposition home or self-care (01) ==
LOC: ED 19:03
DX: M54.9 Dorsalgia, unspecified (principal); M51.26 Other intervertebral disc displacement, lumbar region
CPT/HCPCS: 72131; 81003; 87086; 96372; 99282; J1885